=== PATIENT | female | born 1965 | race Hispanic/Latino ===

== ENCOUNTER 2018-09-22 10:21 | Emergency (ER) | payer OTHER | END 2018-09-22 11:18 | disposition home or self-care (01) | LOC: EDH 10:21 | DX: Z00.01 Encounter for general adult medical examination with abnormal findings (principal); M25.511 Pain in right shoulder; M25.512 Pain in left shoulder; M25.411 Effusion, right shoulder; K59.00 Constipation, unspecified; M06.9 Rheumatoid arthritis, unspecified; Z88.6 Allergy status to analgesic agent; Z98.890 Other specified postprocedural states ==